=== PATIENT | female | born 1985 | race Caucasian/White ===

== ENCOUNTER 2016-05-29 01:23 | Emergency (ER) | payer OTHER ==
[~2016-05-29] VITALS: Ht 167.6 cm; Wt 70.7 kg
[2016-05-29 04:05] LABS: HEMATOCRIT 34.2 % (36.0-46.0); MCH 27.4 PG (29.0-34.0); MEAN PLAT.VOLUME 10.3 uM^3 (9.5-12.4); PLATELET COUNT 153 K/uL (156-360); RBC DIS.WIDTH-CV 13.1 % (11.8-14.6); RBC DIS.WIDTH-SD 39.6 % (39-53); RED BLOOD COUNT 4.12 M/uL (3.80-5.20)
[2016-05-29 04:14] LABS: CHLORIDE 104 mEq/L (99-109); SODIUM 138 mEq/L (136-147)
[2016-05-29 04:15] LABS: GLUCOSE 89 mg/dL (70-99)
[2016-05-29 04:17] LABS: ANION GAP 9 MEQ/L (2-14); TOTAL BILIRUBIN 0.3 mg/dL (0.0-1.0)
[2016-05-29 04:19] LABS: ALKALINE PHOSPHATASE 87 IU/L (3-129); GFR ESTIMATE (CALCULATED) > 59 mL/min/
[2016-05-29 04:20] LABS: UREA NITROGEN (BUN) 9 mg/dL (9-23)
[2016-05-29 04:37] LABS: ADD MIUA? YES; BILIRUBIN NEGATIVE; BLOOD NEGATIVE; COLOR YELLOW ((YELLOW)); GLUCOSE (STRIP) NEGATIVE; KETONES NEGATIVE; LEUKOCYTES TRACE; NITRITE NEGATIVE; PROTEIN (STRIP) NEGATIVE; UROBILINOGEN 0.2 MG/DL (0.2-1.0)
[2016-05-29 04:46] VITALS: BP 132/76
[2016-05-29 04:46] LABS: BACTERIA RARE /HPF; EPITHELIAL CELLS RARE /HPF; MUCUS TRACE /LPF; RED BLOOD CELLS 0-5 /HPF (0-5); UCUL ADDED? NO; WHITE BLOOD CELLS 0-5 /HPF (0-5)
[2016-05-29 04:55] LABS: QUANTITATIVE HCG 31060.5 MIU/ML
[2016-05-29] MEDS ORDERED: KEFLEX500 MG PO (05:15)
== END 2016-05-29 05:22 | disposition home or self-care (01) ==
LOC: EME 01:23
DX: O23.41 Unspecified infection of urinary tract in pregnancy, first trimester (principal); M54.5 Low back pain; Z3A.01 Less than 8 weeks gestation of pregnancy; O99.331 Smoking (tobacco) complicating pregnancy, first trimester
CPT/HCPCS: 80053; 81003; 84702; 85027; 99281; 99284

== ENCOUNTER 2016-12-28 12:10 | Inpatient (IN) | payer OTHER ==
[~2016-12-28] VITALS: Ht 167.6 cm; Wt 78.9 kg
[~2016-12-28 12:10] MED LIST: KEFLEX500 MG PO
[2016-12-28 13:04] VITALS: BP 144/82
[2016-12-28 13:26] VITALS: BP 152/98
[2016-12-28 15:21] LABS: ANTI-HIV (AIDS STAT TEST) NONREACTIVE; INTERNAL CONTROL VALID? YES
[2016-12-28 15:41] LABS: EOSINOPHIL (%) 0 % (0-5); HEMATOCRIT 34.9 % (36.0-46.0); IMMATURE GRANULOCYTE (%) 0.6 % (0.0-0.7); IMMATURE GRANULOCYTE COUNT 0.1 K/uL; INSTRUMENT ABS NEUTROPHIL CT 10.1 K/uL; MCHC 33.5 G/DL (30.0-36.0); MCV 86.4 FL (83-99); MEAN PLAT.VOLUME 12.7 uM^3 (9.5-12.4); MONOCYTE (%) 2.4 % (3-12); MONOCYTE COUNT 0.3 K/uL (0-0.8); NEUTROPHIL (%) 88.2 % (45-76); NEUTROPHIL COUNT 10.1 K/uL (1.8-6.4); PLATELET COUNT 90 K/uL (156-360); RBC DIS.WIDTH-CV 13.3 % (11.8-14.6); RBC DIS.WIDTH-SD 41.7 % (39-53); RED BLOOD COUNT 4.04 M/uL (3.80-5.20); WHITE BLOOD COUNT 11.4 K/uL (4.1-10.2)
[2016-12-28 15:57] LABS: ADD MIUA? YES; BILIRUBIN NEGATIVE; BLOOD LARGE; GLUCOSE (STRIP) NEGATIVE; KETONES NEGATIVE; LEUKOCYTES MODERATE; NITRITE NEGATIVE; PROTEIN (STRIP) 100; SPECIFIC GRAVITY 1.012 (1.000-1.030); UROBILINOGEN 0.2 MG/DL (0.2-1.0)
[2016-12-28 16:00] LABS: COLOR RED ((YELLOW))
[2016-12-28 16:17] LABS: AMPHETAMINE NEGATIVE (500 ng/mL); BENZODIAZEPINES NEGATIVE (150 ng/mL); COCAINE NEGATIVE (150 ng/mL); METHADONE PRESUMPTIVE POSITIVE (200 ng/mL); METHAMPHETAMINE NEGATIVE (500 ng/mL); OPIATES (MORPHINE) NEGATIVE (100 ng/mL); PHENCYCLIDINE NEGATIVE (25 ng/mL); THC CANNABINOIDS NEGATIVE (50 ng/mL); TRICYCLIC ANTIDEPRESSANTS NEGATIVE (300 ng/mL)
[2016-12-28 16:18] LABS: BARBITURATES NEGATIVE (200 ng/mL); INTERNAL CONTROLS VALID? YES; OXYCODONE NEGATIVE (100 ng/mL); PROPOXYPHENE NEGATIVE (300 ng/mL)
[2016-12-28 16:37] LABS: BACTERIA 3+ /HPF; EPITHELIAL CELLS NONE SEEN /HPF; MUCUS NONE SEEN /LPF; RED BLOOD CELLS TNTC /HPF (0-5); UCUL ADDED? YES
[2016-12-28 22:00] VITALS: BP 125/79
[2016-12-29 06:03] LABS: EOSINOPHIL (%) 0.5 % (0-5); HEMATOCRIT 32.2 % (36.0-46.0); IMMATURE GRANULOCYTE (%) 0.8 % (0.0-0.7); IMMATURE GRANULOCYTE COUNT 0.1 K/uL; INSTRUMENT ABS NEUTROPHIL CT 4.9 K/uL; LYMPHOCYTE COUNT 2.2 K/uL (1.0-2.8); MCH 28.7 PG (29.0-34.0); MCHC 32.9 G/DL (30.0-36.0); MCV 87.3 FL (83-99); MEAN PLAT.VOLUME 12.3 uM^3 (9.5-12.4); MONOCYTE (%) 4.4 % (3-12); MONOCYTE COUNT 0.3 K/uL (0-0.8); NEUTROPHIL (%) 65.3 % (45-76); NEUTROPHIL COUNT 4.9 K/uL (1.8-6.4); PLATELET COUNT 86 K/uL (156-360); RBC DIS.WIDTH-CV 13.3 % (11.8-14.6); RBC DIS.WIDTH-SD 41.8 % (39-53); RED BLOOD COUNT 3.69 M/uL (3.80-5.20); WHITE BLOOD COUNT 7.6 K/uL (4.1-10.2)
[2016-12-29 07:41] VITALS: BP 133/80
[2016-12-29 09:34] LABS: TREPONEMA ANTIBODY NEGATIVE (NEGATIVE)
[2016-12-29 10:02] LABS: HBSG INDEX 0.16
[2016-12-29 10:04] LABS: HIV INDEX 0.16; HIV-1/2 AB/AG COMBO Nonreactive
[2016-12-29 14:36] VITALS: BP 128/83
[2016-12-29 23:23] VITALS: BP 132/86
[2016-12-30 09:09] VITALS: BP 145/90
[2016-12-30 15:25] VITALS: BP 141/92
== END 2016-12-30 17:45 | disposition home or self-care (01) | DRG 775 ==
LOC: LDRP-OP 12:10 → 2WEST 12:11
PROVIDERS: Advanced Practice Midwife
DX: Z39.0 Encounter for care and examination of mother immediately after delivery (principal); Z37.0 Single live birth; Z3A.37 37 weeks gestation of pregnancy; O32.1XX1 Maternal care for breech presentation, fetus 1; O99.324 Drug use complicating childbirth; F11.20 Opioid dependence, uncomplicated; Z87.891 Personal history of nicotine dependence; F14.10 Cocaine abuse, uncomplicated; Z23 Encounter for immunization
CPT/HCPCS: 81003; 85025; 86703; 86762; 86780; 86803; 86850; 86900; 86901; 87086; 87340; 87529 90; 88307; 90686; J1050; J2310